=== PATIENT | male | born 1950 | race Two or more races ===

== ENCOUNTER 2024-06-07 18:01 | Inpatient (IN) | payer OTHER ==
[~2024-06-07] VITALS: Ht 172.7 cm; Wt 72.6 kg
[2024-06-07 18:51] LABS: BASOPHILS # (AUTO) 0.1 K/UL (0.0-0.2); BASOPHILS % (AUTO) 0.7 % (0.0-2.0); EOSINOPHILS # (AUTO) 0.1 K/uL (0.0-0.7); HEMATOCRIT 35.5 % (36.7-47.1); HEMOGLOBIN 11.8 g/dL (12.5-16.3); LYMPHOCYTES # (AUTO) 1.7 K/uL (0.8-4.8); LYMPHOCYTES % (AUTO) 14.2 % (20.5-51.5); MEAN CORPUSCULAR HEMOGLOBIN 31.9 uug (23.8-33.4); MEAN CORPUSCULAR HGB CONC 33 g/dL (32.5-36.3); MEAN CORPUSCULAR VOLUME 95.8 fL (73.0-96.2); MONOCYTES % (AUTO) 8.8 % (0.0-11.0); NEUTROPHILS # (AUTO) 8.9 K/uL (1.8-8.9); NEUTROPHILS % (AUTO) 75.3 % (38.5-71.5); PLATELET COUNT (AUTO) 135 K/uL (152-348); WHITE BLOOD COUNT (AUTO) 11.8 K/uL (3.6-10.2)
[2024-06-07] MEDS ORDERED: PANT20TA2 PO (18:51)
[2024-06-07] MEDS ORDERED: POTA10CA43 PO (18:51)
[2024-06-07] MEDS ORDERED: BISO5TAB20 PO (18:51)
[2024-06-07] MEDS ORDERED: SACU1TAB PO (18:51)
[2024-06-07] MEDS ORDERED: FURO20TA4 PO (18:51)
[2024-06-07] MEDS ORDERED: ATOR40TA PO (18:51)
[2024-06-07 18:58] LABS: DIFFERENTIAL COMMENT 1
[2024-06-07 19:00] LABS: CALCIUM 7.8 mg/dL (8.5-10.1); CARBON DIOXIDE 16 mmol/L (21-32); CHLORIDE 108 mmol/L (98-107); CREATININE 4.6 mg/dL (0.6-1.3); GLUCOSE 114 mg/dL (74-106); POTASSIUM 6.2 mmol/L (3.5-5.1); SODIUM SERUM 135 mmol/L (136-145); UREA NITROGEN, BLOOD 79 mg/dL (7-18)
[2024-06-07 19:13] LABS: ALANINE AMINOTRANSFERASE 78 U/L (16-63); ALBUMIN 2.2 g/dL (3.4-5.0); ALKALINE PHOSPHATASE 164 U/L (50-136); ASPARTATE AMINOTRANSFERASE 100 U/L (15-37); BILIRUBIN,TOTAL 2.6 mg/dL (0.2-1.0); NT-PRO BNP 4143 pg/mL (0-125); TOTAL PROTEIN, SERUM 5.2 g/dL (6.4-8.2)
[2024-06-07 19:32] LABS: AMMONIA 65 umol/L (11-32)
[2024-06-07] MEDS ORDERED: NOREPINEPHRINE 8MG/NS 250ML 250 ML IV ONE (20:17)
[2024-06-07] MEDS ORDERED: CALCIUM GLUCONATE 1 GM/10 ML VIAL IV ONE (20:18)
[2024-06-07] MEDS ORDERED: SODIUM POLYSTYRENE SULFONATE 15 G/60 ML LIQUID UDC ONE (20:18)
[2024-06-07] MEDS ORDERED: SODIUM BICARBONATE 8.4% 50 MEQ/50 ML DISP.SYRIN IV ONE (20:18)
[2024-06-07] MEDS ORDERED: KETOROLAC TROMETHAMINE 30 MG INJ ONE (20:22)
[2024-06-07] MEDS: NOREPINEPHRINE 8MG/NS 250ML 250 ML IV PRN (20:25)
[2024-06-07] MEDS: SODIUM BICARBONATE 8.4% 50 MEQ/50 ML DISP.SYRIN IV ONE (20:33)
[2024-06-07] MEDS: SODIUM POLYSTYRENE SULFONATE 15 G/60 ML LIQUID UDC PO ONE (20:33)
[2024-06-07] MEDS: CALCIUM GLUCONATE IV 1 GM in IV DEXTROSE 5% 50 ML IV ONE (20:33)
[2024-06-07 20:45] LABS: ABG BASE EXCESS -8.3 mmol/L (-2.0-3.0); ABG HCO3 14.2 mmol/L (21.0-28.0); ABG PCO2 22.5 mmHg (35.0-48.0); ABG PH 7.418 (7.350-7.450); ABG PO2 74.4 mmHg (83.0-108.0); ABG SITE LEFT RADIAL; ABG TOTAL HEMOGLOBIN 12.7 G/dL (13.5-17.5); AaDO2 95.5 mmHg; COHb 0.5 % (0.5-1.5); MetHb 0.3 % (0.0-1.5); O2Hb 93.7 % (94.0-98.0)
[2024-06-07] MEDS ORDERED: ALBUMIN HUMAN 25% 50 ML ONE (22:34)
[2024-06-07] MEDS: ALBUMIN HUMAN 25% 50 ML IV ONE (22:35)
[2024-06-08 03:09] LABS: CARBON DIOXIDE 15 mmol/L (21-32); CHLORIDE 109 mmol/L (98-107); CREATININE 4.3 mg/dL (0.6-1.3); GLUCOSE 117 mg/dL (74-106); POTASSIUM 5.9 mmol/L (3.5-5.1); SODIUM SERUM 138 mmol/L (136-145); UREA NITROGEN, BLOOD 78 mg/dL (7-18)
[2024-06-08] MEDS ORDERED: ONDANSETRON 4 MG/2 ML VIAL ONE (03:42)
[2024-06-08] MEDS: ONDANSETRON 4 MG/2 ML VIAL IV ONE (03:47)
[2024-06-08] MEDS ORDERED: DEXTROSE 50% 50 ML DISP.SYRIN ONE (04:05)
[2024-06-08] MEDS ORDERED: CALCIUM GLUCONATE 1 GM/10 ML VIAL IV ONE (04:05)
[2024-06-08] MEDS ORDERED: SODIUM BICARBONATE 8.4% 50 MEQ/50 ML DISP.SYRIN IV ONE (04:06)
[2024-06-08] MEDS ORDERED: INSULIN REGULAR, HUMAN 1000 UNIT/10 ML VIAL ONE (04:06)
[2024-06-08] MEDS ORDERED: SODIUM POLYSTYRENE SULFONATE 15 G/60 ML LIQUID UDC ONE (04:06)
[2024-06-08] MEDS: SODIUM POLYSTYRENE SULFONATE 15 G/60 ML LIQUID UDC PO ONE (04:10)
[2024-06-08] MEDS: SODIUM BICARBONATE 8.4% 50 MEQ/50 ML DISP.SYRIN IV ONE (04:10)
[2024-06-08] MEDS: DEXTROSE 50% 50 ML DISP.SYRIN IV ONE (04:10)
[2024-06-08] MEDS: CALCIUM GLUCONATE IV 1 GM in IV DEXTROSE 5% 50 ML IV ONE (04:11)
[2024-06-08] MEDS: INSULIN REGULAR, HUMAN 1000 UNIT/10 ML VIAL IV ONE (04:11)
[2024-06-08] MEDS ORDERED: hydrALAZINE HCL 20 MG/1 ML VIAL IV PRN (04:15)
[2024-06-08] MEDS ORDERED: ACETAMINOPHEN 325 MG TABLET PO PRN (04:15)
[2024-06-08] MEDS ORDERED: MAGNESIUM HYDROXIDE 30 ML LIQUID UDC PO PRN (04:15)
[2024-06-08] MEDS ORDERED: NOREPINEPHRINE 8MG/NS 250ML 250 ML IV ONE ×6 (04:20→23:51)
[2024-06-08] MEDS: ALBUMIN HUMAN 25% 100 ML IV STA (04:30)
[2024-06-08] MEDS ORDERED: ALBUMIN HUMAN 25% 50 ML ONE (05:29)
[2024-06-08] MEDS ORDERED: HEPARIN SODIUM,PORCINE 5,000 UNITS/ML VIAL SQ SCH (09:00)
[2024-06-08] MEDS ORDERED: NOREPINEPHRINE 8MG/NS 250ML 250 ML IV PRN (09:15)
[2024-06-08 09:28] LABS: ALANINE AMINOTRANSFERASE 87 U/L (16-63); ALBUMIN 2.9 g/dL (3.4-5.0); ALKALINE PHOSPHATASE 183 U/L (50-136); ASPARTATE AMINOTRANSFERASE 109 U/L (15-37); BILIRUBIN,TOTAL 4.2 mg/dL (0.2-1.0); CALCIUM 8.5 mg/dL (8.5-10.1); CARBON DIOXIDE 15 mmol/L (21-32); CHLORIDE 109 mmol/L (98-107); CREATININE 4.3 mg/dL (0.6-1.3); GLUCOSE 153 mg/dL (74-106); POTASSIUM 5.2 mmol/L (3.5-5.1); SODIUM SERUM 139 mmol/L (136-145); TOTAL PROTEIN, SERUM 6.1 g/dL (6.4-8.2); UREA NITROGEN, BLOOD 77 mg/dL (7-18)
[2024-06-08] MEDS ORDERED: LACTULOSE 20 G/30 ML LIQUID UDC ONE ×3 (10:30→17:39)
[2024-06-08] MEDS ORDERED: RIFAXIMIN 550 MG TABLET ONE ×2 (10:30→22:59)
[2024-06-08] MEDS ORDERED: MIDODRINE HCL 5 MG TABLET ONE ×3 (10:31→17:39)
[2024-06-08] MEDS: RIFAXIMIN 550 MG TABLET PO SCH (10:42)
[2024-06-08] MEDS: MIDODRINE HCL 5 MG TABLET PO SCH (10:42)
[2024-06-08] MEDS: LACTULOSE 20 G/30 ML LIQUID UDC PO SCH (10:42)
[2024-06-08] MEDS: HEPARIN SODIUM,PORCINE 5,000 UNITS/ML VIAL SQ SCH (10:59)
[2024-06-08] MEDS ORDERED: HEPARIN SODIUM,PORCINE 5,000 UNITS/ML VIAL ONE ×2 (12:08→22:59)
[2024-06-08] MEDS ORDERED: EMPA25TA PO (17:05)
[2024-06-08] MEDS: NOREPINEPHRINE 8MG/NS 250ML 250 ML IV PRN (18:35)
[2024-06-08] MEDS ORDERED: MORPHINE SULFATE 2 MG/1 ML DISP.SYRIN ONE (22:59)
[2024-06-08] MEDS: ATORVASTATIN 40 MG TABLET PO SCH (23:13)
[2024-06-08] MEDS: MORPHINE SULFATE 2 MG/1 ML DISP.SYRIN IVP PRN (23:15)
[2024-06-09] VITALS (66 sets, daily range): BP systolic 67–123; BP diastolic 46–65; TEMP 97.8–98.7; O2SAT 89–99
[2024-06-09] MEDS ORDERED: MORPHINE SULFATE 2 MG/1 ML DISP.SYRIN ONE (04:29)
[2024-06-09] MEDS ORDERED: NOREPINEPHRINE 8MG/NS 250ML 250 ML IV ONE (04:35)
[2024-06-09 05:50] LABS: BASOPHILS # (AUTO) 0.1 K/UL (0.0-0.2); BASOPHILS % (AUTO) 0.5 % (0.0-2.0); EOSINOPHILS # (AUTO) 0.1 K/uL (0.0-0.7); EOSINOPHILS % (AUTO) 0.9 % (0.0-7.0); HEMATOCRIT 38.2 % (36.7-47.1); HEMOGLOBIN 12.9 g/dL (12.5-16.3); LYMPHOCYTES # (AUTO) 1.8 K/uL (0.8-4.8); LYMPHOCYTES % (AUTO) 12.4 % (20.5-51.5); MEAN CORPUSCULAR HGB CONC 34 g/dL (32.5-36.3); MEAN CORPUSCULAR VOLUME 94.8 fL (73.0-96.2); MONOCYTES # (AUTO) 1.5 K/uL (0.1-1.30); MONOCYTES % (AUTO) 9.7 % (0.0-11.0); NEUTROPHILS # (AUTO) 11.4 K/uL (1.8-8.9); NEUTROPHILS % (AUTO) 76.5 % (38.5-71.5); PLATELET COUNT (AUTO) 148 K/uL (152-348); RED BLOOD CELL COUNT(AUTO) 4.03 MIL/uL (4.06-5.63); RED CELL DISTRIBUTION WIDTH 21.3 % (12.1-16.2); WHITE BLOOD COUNT (AUTO) 14.9 K/uL (3.6-10.2)
[2024-06-09 05:55] LABS: DIFFERENTIAL COMMENT 1
[2024-06-09 06:01] LABS: AMMONIA 34 umol/L (11-32)
[2024-06-09 06:05] LABS: ALANINE AMINOTRANSFERASE 107 U/L (16-63); ALBUMIN 2.6 g/dL (3.4-5.0); ALKALINE PHOSPHATASE 186 U/L (50-136); ASPARTATE AMINOTRANSFERASE 168 U/L (15-37); BILIRUBIN,TOTAL 4.5 mg/dL (0.2-1.0); CALCIUM 8.6 mg/dL (8.5-10.1); CARBON DIOXIDE 17 mmol/L (21-32); CHLORIDE 111 mmol/L (98-107); CREATININE 4.2 mg/dL (0.6-1.3); GLUCOSE 137 mg/dL (74-106); POTASSIUM 4.9 mmol/L (3.5-5.1); SODIUM SERUM 142 mmol/L (136-145); TOTAL PROTEIN, SERUM 5.6 g/dL (6.4-8.2)
[2024-06-09 06:07] LABS: UREA NITROGEN, BLOOD 81 mg/dL (7-18)
[2024-06-09 06:13] LABS: PHOSPHOROUS 6.9 mg/dL (2.5-4.9)
[2024-06-09] MEDS ORDERED: ONDANSETRON 4 MG/2 ML VIAL ONE (07:02)
[2024-06-09] MEDS: PANTOPRAZOLE SODIUM 40 MG TABLET.DR PO SCH (07:18)
[2024-06-09] MEDS: ONDANSETRON 4 MG/2 ML VIAL IV PRN (07:19)
[2024-06-09] MEDS ORDERED: NOREPINEPHRINE BITARTRATE 32 MG in IV NORMAL SALINE 218 ML IV PRN (08:30)
[2024-06-09] MEDS: EMPAGLIFLOZIN 25 MG TABLET PO SCH (08:56)
[2024-06-09] MEDS: VANCOMYCIN IV 1,000 MG in IV DEXTROSE 5% 250 ML IV ONE (09:17)
[2024-06-09] MEDS: ALBUMIN HUMAN 25% 100 ML IV SCH (09:18)
[2024-06-09] MEDS: PIPERACILLIN/TAZO 2.25 G in IV DEXTROSE 5% 50 ML IV SCH (12:44)
[2024-06-09] MEDS ORDERED: PIPERACILLIN SODIUM/TAZOBACTAM 3.375 G in IV DEXTROSE 5% 50 ML IV SCH (14:00)
[2024-06-09 14:26] LABS: *BILIRUBIN,URIN NEGATIVE (NEGATIVE); *BLOOD, URINE NEGATIVE (NEGATIVE); *CLARITY,URINE CLEAR (CLEAR); *COLOR,URINE YELLOW (YELLOW); *KETONES,URINE NEGATIVE (NEGATIVE); *PROTEIN,URINE NEGATIVE (NEGATIVE); *UROBILINOGEN,URINE 0.2 E.U./dl (NORMAL); LEUKOCYTE ESTERASE ,URINE NEGATIVE (NEGATIVE); NITRITE, URINE NEGATIVE (NEGATIVE); UGLUCOSE 2+ (NEGATIVE)
[2024-06-10] VITALS (79 sets, daily range): BP systolic 72–120; BP diastolic 39–107; TEMP 97.3–98.8; O2SAT 85–99
[2024-06-10] MEDS ORDERED: ALBUMIN HUMAN 25% 50 ML ONE (02:34)
[2024-06-10 05:29] LABS: BASOPHILS # (AUTO) 0.1 K/UL (0.0-0.2); EOSINOPHILS # (AUTO) 0.3 K/uL (0.0-0.7); EOSINOPHILS % (AUTO) 2.3 % (0.0-7.0); HEMATOCRIT 29.8 % (36.7-47.1); HEMOGLOBIN 10.3 g/dL (12.5-16.3); LYMPHOCYTES # (AUTO) 1.5 K/uL (0.8-4.8); LYMPHOCYTES % (AUTO) 11.7 % (20.5-51.5); MEAN CORPUSCULAR HEMOGLOBIN 32.5 uug (23.8-33.4); MEAN CORPUSCULAR HGB CONC 34 g/dL (32.5-36.3); MEAN CORPUSCULAR VOLUME 94.4 fL (73.0-96.2); MONOCYTES # (AUTO) 0.9 K/uL (0.1-1.30); MONOCYTES % (AUTO) 7.5 % (0.0-11.0); NEUTROPHILS # (AUTO) 9.9 K/uL (1.8-8.9); NEUTROPHILS % (AUTO) 77.5 % (38.5-71.5); PLATELET COUNT (AUTO) 150 K/uL (152-348); RED BLOOD CELL COUNT(AUTO) 3.16 MIL/uL (4.06-5.63); RED CELL DISTRIBUTION WIDTH 20.9 % (12.1-16.2); WHITE BLOOD COUNT (AUTO) 12.7 K/uL (3.6-10.2)
[2024-06-10 05:48] LABS: DIFFERENTIAL COMMENT 1
[2024-06-10 06:06] LABS: ALANINE AMINOTRANSFERASE 86 U/L (16-63); ALBUMIN 3.6 g/dL (3.4-5.0); ALKALINE PHOSPHATASE 127 U/L (50-136); ASPARTATE AMINOTRANSFERASE 141 U/L (15-37); BILIRUBIN,TOTAL 4.8 mg/dL (0.2-1.0); CALCIUM 8.1 mg/dL (8.5-10.1); CARBON DIOXIDE 18 mmol/L (21-32); CHLORIDE 110 mmol/L (98-107); CREATININE 3.3 mg/dL (0.6-1.3); GLUCOSE 139 mg/dL (74-106); SODIUM SERUM 143 mmol/L (136-145); TOTAL PROTEIN, SERUM 5.8 g/dL (6.4-8.2); UREA NITROGEN, BLOOD 68 mg/dL (7-18)
[2024-06-10 06:13] LABS: AMMONIA 24 umol/L (11-32)
[2024-06-10 07:20] LABS: POTASSIUM 5.1 mmol/L (3.5-5.1)
[2024-06-10] MEDS: VANCOMYCIN HCL 750 MG in IV DEXTROSE 5% 250 ML IV ONE (07:33)
[2024-06-10] MEDS ORDERED: LACT10SO7 PO (15:59)
[2024-06-10] MEDS ORDERED: MIDO5TAB4 PO (15:59)
[2024-06-10] MEDS ORDERED: ONDA4VIA23 IV (15:59)
[2024-06-10] MEDS ORDERED: RIFA550T PO (15:59)
[2024-06-10] MEDS ORDERED: ACET325T53 PO (15:59)
[2024-06-10] MEDS ORDERED: Morphine Sulfate Inj IVP (15:59)
[2024-06-10] MEDS ORDERED: RXVAN XX (15:59)
[2024-06-10] MEDS ORDERED: HEPA50007 SQ (15:59)
[2024-06-10] MEDS ORDERED: PIPE2.257 IV (15:59)
[2024-06-10] MEDS ORDERED: EMPA25TA PO (15:59)
[2024-06-10] MEDS ORDERED: PANT40TA49 PO (15:59)
[2024-06-10] MEDS ORDERED: NORE8PLA12 IV (15:59)
[2024-06-10] MEDS: ENSURE ENLIVE (VAN) 240 ML LIQUID PO SCH (16:49)
[2024-06-11] MEDS ORDERED: ATENOLOL 50 MG TABLET PO SCH (09:00)
== END 2024-06-10 22:08 | disposition short-term general hospital (02) | DRG 871 ==
LOC: ER 18:12 → UNDOADMIN 06-08 07:23 → ICU IN 06-08 07:23 → CCU 06-09 08:19
PROVIDERS: ADMIT Internal Medicine; ATTEND Nurse Practitioner Family
PROC: 05HD33Z Insertion of Infusion Device into Right Cephalic Vein, Percutaneous Approach (ICD-10-PCS; 2024-06-08)
PROC: 0W9G3ZZ Drainage of Peritoneal Cavity, Percutaneous Approach (ICD-10-PCS; principal; 2024-06-09)
DX: A41.9 Sepsis, unspecified organism (principal); J18.9 Pneumonia, unspecified organism; R65.21 Severe sepsis with septic shock; N17.9 Acute kidney failure, unspecified; E87.20 Acidosis, unspecified; E44.1 Mild protein-calorie malnutrition; I13.0 Hypertensive heart and chronic kidney disease with heart failure and stage 1 through stage 4 chronic kidney disease, or unspecified chronic kidney disease; I50.22 Chronic systolic (congestive) heart failure; R18.8 Other ascites; E87.1 Hypo-osmolality and hyponatremia; J98.11 Atelectasis; G93.40 Encephalopathy, unspecified; I48.0 Paroxysmal atrial fibrillation; I25.5 Ischemic cardiomyopathy; E87.5 Hyperkalemia; E88.09 Other disorders of plasma-protein metabolism, not elsewhere classified; Z68.24 Body mass index [BMI] 24.0-24.9, adult; D63.8 Anemia in other chronic diseases classified elsewhere; K21.9 Gastro-esophageal reflux disease without esophagitis; K80.20 Calculus of gallbladder without cholecystitis without obstruction; Z95.810 Presence of automatic (implantable) cardiac defibrillator; E86.9 Volume depletion, unspecified; N18.9 Chronic kidney disease, unspecified; I25.10 Atherosclerotic heart disease of native coronary artery without angina pectoris; I25.2 Old myocardial infarction; Z88.6 Allergy status to analgesic agent; K74.60 Unspecified cirrhosis of liver; Z79.899 Other long term (current) drug therapy
CPT/HCPCS: 36415; 36600; 70450; 71045; 76705; 82803; 83605; 83690; 84100; 84484; 85025; 85610; 85730; 87040; 87077; 87086; 93307; G0378; J0612; J1644; J1815; J1885; J2270; J2405; J2543; J3370; J3490; J7050; P9047